=== PATIENT | female | born 1955 | race Caucasian/White ===

== ENCOUNTER 2019-04-07 01:12 | Observation (INO) | payer SELFPAY ==
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
[2019-04-07 02:16] LABS: CHLORIDE,CL 107 mEq/L (98-106); SODIUM,NA 144 mEq/L (136-145)
[2019-04-07] MEDS ORDERED: Sodium Chloride 0.9% 10 ML Syringe FLUSH PRN (04:26)
[2019-04-07] MEDS ORDERED: Ondansetron 4 MG Tab.DIS PO PRN (04:26)
[2019-04-07] MEDS: Acetaminophen 325 MG Tab PO PRN (12:15)
--- NOTE | 2019-04-08 07:39 | PCM.PN ---
- General Info Date of Service: 04/08/19 Functional Status: Reports: Pain Controlled, Tolerating Diet. Denies: Ambulating - Review of Systems General: Reports: Weakness (generalized), Other (Obese) HEENT: Reports: Eye Pain (right eye for 2 weeks that radiates up into her right side of head. ). Denies: Post Nasal Drip, Sinus Congestion Pulmonary: Reports: No Symptoms. Denies: Shortness of Breath Cardiovascular: Reports: No Symptoms. Denies: Chest Pain, Palpitations, Dyspnea on Exertion, Edema, Lightheadedness Gastrointestinal: Reports: No Symptoms. Denies: Abdominal Pain, Diarrhea, Difficulty Swallowing, Nausea, Vomiting Genitourinary: Reports: Incontinence Musculoskeletal: Reports: No Symptoms Skin: Reports: Rash Neurological: Reports: Headache, Weakness (generalized). Denies: Confusion, Dizziness, Numbness, Seizure, Syncope, Tingling, Tremors, Trouble Speaking, Change in Speech Psychiatric: Reports: No Symptoms - Patient Data Vitals - Most Recent: Last Vital Signs Temp 97.2 F 04/08/19 04:00 Pulse 88 04/08/19 04:00 Resp 16 04/08/19 04:00 BP 140/62 04/08/19 04:00 Pulse Ox 95 04/08/19 04:00 Weight - Most Recent: 352 lb 4.8 oz Alberto Results Last 24 Hours: Microbiology 04/07/19 10:00 Occult Blood - Preliminary Stool / Feces Med Orders - Current: Current Medications Acetaminophen (Tylenol) 650 mg PO Q4H PRN PRN Reason: Pain (Mild 1-3)/fever Last Admin: 04/07/19 12:15 Dose: 650 mg Ondansetron HCl (Zofran Odt) 4 mg PO Q4H PRN PRN Reason: nausea, able to take PO Sodium Chloride (Saline Flush) 10 ml FLUSH ASDIRECTED PRN PRN Reason: Keep Vein Open - Exam General: Alert, Oriented, Cooperative, No Acute Distress HEENT: Pupils Equal, Pupils Reactive, Mucous Membr. Moist/[place] Neck: Supple, Trachea Midline, No JVD, No Thyromegaly Lungs: Clear to Auscultation, Normal Respiratory Effort Cardiovascular: Regular Rate, Regular Rhythm GI/Abdominal Exam: Normal Bowel Sounds, Soft, Non-Tender, Other (Obese: unable to identify landmarks. ) Back Exam: Normal Inspection Extremities: Normal Range of Motion, No Pedal Edema, Normal Capillary Refill Peripheral Pulses: 2+: Radial (L), Radial (R), Posterior Tibial (L), Posterior Tibial (R) Skin: Warm, Dry, Rash (Increased warmth multiple abraded area, pressure areas that are erythematous to the left side of left breast. Yeast infection erythema groin and left under breast. ) Psy/Mental Status: Alert, Normal Affect, Normal Mood - Problem List Review Problem List Initiated/Reviewed/Updated: Yes - My Orders Last 24 Hours: My Active Orders 04/08/19 05:00 BMP [BASIC METABOLIC PANEL,BMP] [CHEM] DAILY CBC WITH AUTO DIFF [HEME] DAILY 04/09/19 05:00 BMP [BASIC METABOLIC PANEL,BMP] [CHEM] DAILY CBC WITH AUTO DIFF [HEME] DAILY - Plan Plan:: This patient was admitted yesterday for fall at home and laying on the floor for 12 hours. Patient has not been able to take care of herself and now cargiver is unable to do so. Patient home is dirty, patient was unkempt. Patient is alert and oriented. She reports for the last 2 week having right eye pain that radiates to the right side of her head. She reports that she is unable to get up and feeling generally weak. She reports that she is incontinent of urine at home and now here, also stool. I have ordered labs for this morning and also a head ct due to patient headache complaint and urinary/ bowel incontinence. Will continue admit. Patient should be evaluated by social work msw on Wednesday for future placement.
[2019-04-08 08:25] LABS: CHLORIDE,CL 108 mEq/L (98-106); SODIUM,NA 144 mEq/L (136-145)
--- NOTE | 2019-04-08 14:31 | PCM.SN ---
- Free Text/Narrative Note: I received a phone call from radiology about head ct. Impression: There is probable mass in the right frontal lobe with decreased density cerebral white matter and mass effect. There may an underlying tumor. Recommend an MR. I have also reviewed patient US impression: that shows marked thickening of the endometrial cavity may be related to endometrial hyperplasia, polyp or endometrial neoplasia. Patient also has a UTI, started Rocephin. I have talked to the patient with Jelena BENITEZ about her US, CT, and Urine results. She would like to call her family and discuss options with them and if she wants to be transferred. She said she will talk to them and let us know the decision. I have answered all questions the patient had at this time. Patient at this time wants to hold on transfer and consult until she talks to her family. 04/08/191899 Patient still discussing with family and has not made a decision about transfer or further treatment. At this time, still does not want treatment until discussion complete with family. 04/08/192009 The patient and family have made the decision to be transferred to [facility]. However, patient does not want to be transferred until tomorrow because she would like to stay here one more night with family close by she reports. Patient is alert and oriented. I then called and spoke to neurosurgeon at [facility] who reports tomorrow transfer would be fine. He reports to give her Decadron IV and Keppra. 04/08/192149 I spoke with the patient again about the plan. I again asked if she would like to be transferred now, she reports in the morning. She is alert and oriented. She is drowsy and reports being nauseated. I did explain to the patient that neurosurgeon reported this would more than likely be surgical and she has a long road ahead. She reports that surgery would be okay. We had a long discussion about her code status. Patient continues to report that she wants to be DNR. She does not want CPR or Intubation with vent. She will accept Rocephin , Decadron, Keppra, and Zofran. The patient reports that she is yazidi and when it is her time, its her time to go. The plan will be to transfer the patient tomorrow. If her condition changes, will again revisit the possibility of a transfer sooner.
[2019-04-08] MEDS: cefTRIAXone 1 GM Vial IVPUSH SCH (14:45)
[2019-04-08] MEDS: Acetaminophen 325 MG Tab PO PRN (19:34)
[2019-04-08] MEDS ORDERED: Dexamethasone 4 MG/ML SDV IVPUSH ONE (21:42)
[2019-04-08] MEDS: Ondansetron 4 MG/2 ML SDV IVPUSH PRN (22:39)
[2019-04-08] MEDS: levETIRAcetam 500 MG Tab PO SCH (22:42)
[2019-04-09] MEDS: Dexamethasone 4 MG/ML SDV IVPUSH SCH ×3 (04:28→14:05)
[2019-04-09 08:04] LABS: CHLORIDE,CL 109 mEq/L (98-106); SODIUM,NA 145 mEq/L (136-145)
[2019-04-09] MEDS: levETIRAcetam 500 MG Tab PO SCH (08:05)
[2019-04-09] MEDS ORDERED: Ondansetron 4 MG/2 ML SDV IVPUSH PRN (08:43)
[2019-04-09] MEDS ORDERED: Morphine 4 MG/ML Syringe IVPUSH PRN (08:43)
--- NOTE | 2019-04-09 09:10 | PCM.PN ---
- General Info Date of Service: 04/09/19 Functional Status: Reports: Tolerating Diet. Denies: Ambulating Pain Score: 8 - Review of Systems General: Reports: Weakness (generalized) HEENT: Reports: Eye Pain (Right), Headaches Pulmonary: Reports: No Symptoms Cardiovascular: Reports: No Symptoms Gastrointestinal: Reports: Nausea Genitourinary: Reports: No Symptoms Musculoskeletal: Reports: No Symptoms Skin: Reports: No Symptoms Neurological: Reports: Headache, Difficulty Walking (not able to ambulate or stand. ), Weakness (generalized) Psychiatric: Reports: No Symptoms - Patient Data Vitals - Most Recent: Last Vital Signs Temp 98.5 F 04/09/19 08:00 Pulse 92 04/09/19 08:00 Resp 20 04/09/19 08:00 BP 139/53 L 04/09/19 08:00 Pulse Ox 93 L 04/09/19 08:00 Weight - Most Recent: 352 lb 4.8 oz Lab Results Last 24 Hours: Laboratory Results - last 24 hr 04/08/19 04/09/19 04/09/19 Range/Units 03:00 05:00 05:00 WBC 12.6 H (5.0-10.0) 10^3/uL RBC 5.06 (4.00-5.50) 10^6/uL Hgb 12.6 (12.0-16.0) g/dL Hct 40.9 (37.0-47.0) % MCV 80.8 L (82.0-94.0) fL MCH 24.9 L (27.0-32.0) pg MCHC 30.8 L (33.0-38.0) g/dL RDW Coeff of Aminata 16.9 H (11.0-15.0) % Plt Count 324 (150-400) 10^3/uL Neut % (Auto) 89.2 H (35-85) % Lymph % (Auto) 9.7 L (10-55) % [place] % (Auto) 1.0 (0-16) % Eos % (Auto) 0 (0-5) % Baso % (Auto) 0.1 (0-3) % Neut # (Auto) 11.25 H (1.80-7.00) 10^3/uL Lymph # (Auto) 1.22 (1.00-4.80) 10^3/uL [place] # (Auto) 0.13 (0.00-0.80) 10^3/uL Eos # (Auto) 0.00 (0.00-0.45) 10^3/uL Baso # (Auto) 0.01 10^3/uL Sodium 145 (136-145) mEq/L Potassium 4.6 (3.5-5.0) mEq/L Chloride 109 H (98-106) mEq/L Carbon Dioxide 28 (21-32) mmol/L BUN 22 H (7-18) mg/dL Creatinine 0.6 (0.6-1.0) mg/dL Est Cr Clr Drug Dosing 67.14 mL/min Estimated GFR (MDRD) > 60 (>=60) mL/min Glucose 170 H D (75-99) mg/dL Calcium 9.0 (8.4-10.1) mg/dL Urine Color Yellow (YELLOW) Urine Appearance Cloudy (CLEAR) Urine pH 5.5 (4.5-8.0) Ur Specific [place] 1.025 H (1.003-1.020) Urine Protein 30 H (NEGATIVE) mg/dL Urine Glucose (UA) Negative (NEGATIVE) mg/dL Urine Ketones Trace H (NEGATIVE) mg/dL Urine Occult Blood Large H (NEGATIVE) Urine Nitrite Positive H (NEGATIVE) Urine Bilirubin Negative (NEGATIVE) Urine Urobilinogen 0.2 (0.2-1.0) EU/dL Ur Leukocyte Esterase Moderate H (NEGATIVE) Urine RBC 0-5 (0-5) /HPF Urine WBC 5-10 H (0-5) /HPF Calcium Oxalate Crystal Few H (NOT SEEN) /HPF Amorphous Sediment Moderate H (NOT SEEN) /HPF Urine Bacteria Moderate H (NOT SEEN) /HPF Urinalysis Comment Alberto Results Last 24 Hours: Microbiology 04/08/19 03:00 Urine Culture - Preliminary Urine, Voided Gram Negative Rods Med Orders - Current: Current Medications Acetaminophen (Tylenol) 650 mg PO Q4H PRN PRN Reason: Pain (Mild 1-3)/fever Last Admin: 04/08/19 19:34 Dose: 650 mg Ceftriaxone Sodium (Rocephin) 1 gm IVPUSH Q24H LEOLA Last Admin: 04/08/19 14:45 Dose: 1 gm Dexamethasone (Dexamethasone) 4 mg IVPUSH Q6H LEOLA Last Admin: 04/09/19 04:28 Dose: 4 mg Levetiracetam (Keppra) 500 mg PO BID LEOLA Last Admin: 04/09/19 08:05 Dose: 500 mg Morphine Sulfate (Morphine) 4 mg IVPUSH Q6H PRN PRN Reason: Headache/Pain Ondansetron HCl (Zofran) 4 mg IVPUSH Q6H PRN PRN Reason: Nausea/Vomiting Last Admin: 04/08/19 22:39 Dose: 4 mg Sodium Chloride (Saline Flush) 10 ml FLUSH ASDIRECTED PRN PRN Reason: Keep Vein Open Discontinued Medications Dexamethasone (Dexamethasone) 10 mg IVPUSH ONETIME ONE Stop: 04/08/19 21:43 Last Admin: 04/08/19 22:43 Dose: 10 mg Ondansetron HCl (Zofran Odt) 4 mg PO Q4H PRN PRN Reason: nausea, able to take PO Ondansetron HCl (Zofran) 4 mg IVPUSH Q6H PRN PRN Reason: Nausea/Vomiting - Exam General: Alert, Oriented, Cooperative HEENT: Pupils Equal, Pupils Reactive, EOMI, Mucous Membr. Moist/[place] Neck: Supple Lungs: Clear to Auscultation, Normal Respiratory Effort Cardiovascular: Regular Rate, Regular Rhythm GI/Abdominal Exam: Normal Bowel Sounds, Soft, Non-Tender, No Distention Back Exam: Normal Inspection, Full Range of Motion Extremities: Normal Inspection, Normal Range of Motion, Non-Tender, No Pedal Edema, Normal Capillary Refill Peripheral Pulses: 2+: Radial (L), Radial (R), Posterior Tibial (L), Posterior Tibial (R) Skin: Warm, Dry, Intact, Rash (left breast erythema. ) Neurological: No New Focal Deficit, Sensation Intact, Other (unable to get up from bed. This is unchanged from her admit. ) Psy/Mental Status: Alert, Normal Affect, Normal Mood - Problem List Review Problem List Initiated/Reviewed/Updated: Yes - My Orders Last 24 Hours: My Active Orders 04/08/19 14:00 cefTRIAXone [Rocephin] 1 gm IVPUSH Q24H 04/08/19 21:45 levETIRAcetam [Keppra] 500 mg PO BID 04/08/19 22:04 Ondansetron [Zofran] 4 mg IVPUSH Q6H PRN 04/09/19 04:00 dexAMETHasone [Dexamethasone] 4 mg IVPUSH Q6H 04/09/19 08:43 Morphine 4 mg IVPUSH Q6H PRN - Plan Plan:: 04/08/19 This patient was admitted yesterday for fall at home and laying on the floor for 12 hours. Patient has not been able to take care of herself and now cargiver is unable to do so. Patient home is dirty, patient was unkempt. Patient is alert and oriented. She reports for the last 2 week having right eye pain that radiates to the right side of her head. She reports that she is unable to get up and feeling generally weak. She reports that she is incontinent of urine at home and now here, also stool. I have ordered labs for this morning and also a head ct due to patient headache complaint and urinary/ bowel incontinence. Will continue admit. Patient should be evaluated by health social work professor on Wednesday for future placement. 04/09/19 I have spoken to the patient this morning. She reports she is ready to be transferred today. Patient reports that after discussions with her family, she would like to be transferred now and is wanting to change her code status to a Full Code. The patient reports that she has a headache and right eye pain of 8/ 10 this morning. She has refused pain medications until now. I will prescribe the patient something for pain and nausea. Patient is alert and oriented. Patient reports she is unable to get up form bed, as this has michelle unchanged the last couple of weeks. I called and spoke to neurosurgeon Dr. Askew last night. He agreed to have patient today. I have called today and [facility]. He has accepted the patient. No changes from what we are currently doing for this patient. One call has informed me that they currently do not have a bed open, but will call as soon as one comes available. 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
[2019-04-09] MEDS: Ondansetron 4 MG/2 ML SDV IVPUSH PRN (09:26)
--- NOTE | 2019-04-09 09:58 | PCM.DCSUM1 ---
Discharge Summary - Hospital Course HPI Initial Comments: I have spoken to the patient this morning. She reports she is ready to be transferred today. Patient reports that after discussions with her family, she would like to be transferred now and is wanting to change her code status to a Full Code. The patient reports that she has a headache and right eye pain of 8/ 10 this morning. She has refused pain medications until now. I will prescribe the patient something for pain and nausea. Patient is alert and oriented. Patient reports she is unable to get up form bed, as this has michelle unchanged the last couple of weeks. I called and spoke to neurosurgeon Dr. Askew last night. He agreed to have patient today. I have called today and spoke to Dr. Walter hospitalist [facility]. He has accepted the patient. No changes from what we are currently doing for this patient. One call has informed me that they currently do not have a bed open, but will call as soon as one comes available. 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 Modified [place] Scale: Sev.Disablility Bedridden,Incont.&Require Constant Nrsg.Care/Attention Modified [place] Scale Score: 5 - Discharge Data Discharge Date: 04/09/19 Discharge Disposition: DC/Tfer to Acute Hospital 02 Condition: Serious - Patient Summary/Data Consults: Consultations 04/07/19 04:26 PT Evaluation and Treatment [CONS] Routine - Discharge Plan *PRESCRIPTION DRUG MONITORING PROGRAM REVIEWED*: No *COPY OF PRESCRIPTION DRUG MONITORING REPORT IN PATIENT OLI: No Home Medications: Home Meds . [No Known Home Meds] 04/07/19 [History] Forms: ED Department Discharge Referrals: Redd Xavier MD [Primary Care Provider] - - Discharge Summary/Plan Comment DC Time >30 min.: Yes (Awiating bed availability at [facility]) Discharge Summary/Plan Comment: This patient is being transferred via ALS ambulance to [facility] for neurosurgeon consult and FACS TEACHER consult. The risk of transfer are MVC, , increased cranial edema, change in neuro status, seizures, respiratory arrest, cardiac arrest. The benefits of transfer are higher level of care, neurosurgeon consult and treatment, MRI capability, FACS TEACHER consult, cancer treatment. The benefit of staying in [place] are close to home, some family here in [facility]. The risks of staying in [place] are increased cranial edema , , worsening of condition, no cancer treatment, no surgical treatment. - General Info Date of Service: 04/09/19 Functional Status: Reports: Tolerating Diet - Review of Systems General: Reports: Weakness (general) HEENT: Reports: Eye Pain (right eye pain), Headaches Pulmonary: Reports: No Symptoms Cardiovascular: Reports: No Symptoms Gastrointestinal: Reports: Nausea. Denies: Abdominal Pain, Vomiting Genitourinary: Reports: Incontinence Musculoskeletal: Reports: No Symptoms Skin: Reports: No Symptoms Neurological: Reports: Headache, Difficulty Walking (unable to walk or get out of bed), Weakness (generalized) Psychiatric: Reports: No Symptoms - Patient Data Vitals - Most Recent: Last Vital Signs Temp 98.5 F 04/09/19 08:00 Pulse 92 04/09/19 08:00 Resp 20 04/09/19 08:00 BP 139/53 L 04/09/19 08:00 Pulse Ox 93 L 04/09/19 08:00 Weight - Most Recent: 352 lb 4.8 oz Lab Results - Last 24 hrs: Laboratory Results - last 24 hr 04/09/19 04/09/19 Range/Units 05:00 05:00 WBC 12.6 H (5.0-10.0) 10^3/uL RBC 5.06 (4.00-5.50) 10^6/uL Hgb 12.6 (12.0-16.0) g/dL Hct 40.9 (37.0-47.0) % MCV 80.8 L (82.0-94.0) fL MCH 24.9 L (27.0-32.0) pg MCHC 30.8 L (33.0-38.0) g/dL RDW Coeff of Aminata 16.9 H (11.0-15.0) % Plt Count 324 (150-400) 10^3/uL Neut % (Auto) 89.2 H (35-85) % Lymph % (Auto) 9.7 L (10-55) % Banks % (Auto) 1.0 (0-16) % Eos % (Auto) 0 (0-5) % Baso % (Auto) 0.1 (0-3) % Neut # (Auto) 11.25 H (1.80-7.00) 10^3/uL Lymph # (Auto) 1.22 (1.00-4.80) 10^3/uL Banks # (Auto) 0.13 (0.00-0.80) 10^3/uL Eos # (Auto) 0.00 (0.00-0.45) 10^3/uL Baso # (Auto) 0.01 10^3/uL Sodium 145 (136-145) mEq/L Potassium 4.6 (3.5-5.0) mEq/L Chloride 109 H (98-106) mEq/L Carbon Dioxide 28 (21-32) mmol/L BUN 22 H (7-18) mg/dL Creatinine 0.6 (0.6-1.0) mg/dL Est Cr Clr Drug Dosing 67.14 mL/min Estimated GFR (MDRD) > 60 (>=60) mL/min Glucose 170 H D (75-99) mg/dL Calcium 9.0 (8.4-10.1) mg/dL CALVIN Results - Last 24 hrs: Microbiology 04/08/19 03:00 Urine Culture - Preliminary Urine, Voided Gram Negative Rods Med Orders - Current: Current Medications Acetaminophen (Tylenol) 650 mg PO Q4H PRN PRN Reason: Pain (Mild 1-3)/fever Last Admin: 04/08/19 19:34 Dose: 650 mg Ceftriaxone Sodium (Rocephin) 1 gm IVPUSH Q24H [facility] Last Admin: 04/08/19 14:45 Dose: 1 gm Dexamethasone (Dexamethasone) 4 mg IVPUSH Q6H [facility] Last Admin: 04/09/19 09:24 Dose: 4 mg Levetiracetam (Keppra) 500 mg PO BID [facility] Last Admin: 04/09/19 08:05 Dose: 500 mg Morphine Sulfate (Morphine) 4 mg IVPUSH Q6H PRN PRN Reason: Headache/Pain Last Admin: 04/09/19 09:28 Dose: 4 mg Ondansetron HCl (Zofran) 4 mg IVPUSH Q6H PRN PRN Reason: Nausea/Vomiting Last Admin: 04/09/19 09:26 Dose: 4 mg Sodium Chloride (Saline Flush) 10 ml FLUSH ASDIRECTED PRN PRN Reason: Keep Vein Open Discontinued Medications Dexamethasone (Dexamethasone) 10 mg IVPUSH ONETIME ONE Stop: 04/08/19 21:43 Last Admin: 04/08/19 22:43 Dose: 10 mg Ondansetron HCl (Zofran Odt) 4 mg PO Q4H PRN PRN Reason: nausea, able to take PO Ondansetron HCl (Zofran) 4 mg IVPUSH Q6H PRN PRN Reason: Nausea/Vomiting - Exam General: Reports: Alert, Oriented, Cooperative HEENT: Reports: Pupils Equal, Pupils Reactive, EOMI, Mucous Membr. Moist/[place] Neck: Reports: Supple Lungs: Reports: Clear to Auscultation, Normal Respiratory Effort Cardiovascular: Reports: Regular Rate, Regular Rhythm GI/Abdominal Exam: Normal Bowel Sounds, Soft, Non-Tender, Pelvis Stable Back Exam: Reports: Normal Inspection, Full Range of Motion Extremities: Normal Inspection, Non-Tender, No Pedal Edema, Normal Capillary Refill Skin: Reports: Warm, Dry, Intact, Rash (breast under) Neurological: Reports: Normal Speech, Sensation Intact, Other (unable to get up from bed, unchanged from admit. ) Psy/Mental Status: Reports: Alert, Normal Affect, Normal Mood
[2019-04-09] MEDS: cefTRIAXone 1 GM Vial IVPUSH SCH (14:05)
== END 2019-04-09 14:40 ==
LOC: CC.ED 01:12 → UNDOADMOB 02:44 → CC.MS 02:44 → OBSVTOIN 02:44 → INTOOBSV 02:44 → CC.ED 02:44 → CC.MS 02:46
PROVIDERS: ADMIT Physician Assistant Medical; ATTEND Family Medicine
DX: R51 Headache (principal); R53.1 Weakness; H57.11 Ocular pain, right eye; Z87.42 Personal history of other diseases of the female genital tract; Z88.0 Allergy status to penicillin; Z98.890 Other specified postprocedural states
CPT/HCPCS: 36415; 70450; 76830; 80048; 80053; 81001; 81003; 82270; 82550; 83615; 84484; 85025; 86140; 87086; 87088; 87186; 97110-GP; 97161-GP; 99285; A9270-GY; J0696; J1100; J2270; J2405

== ENCOUNTER 2019-06-08 07:00 | Emergency (ER) | payer MEDICAID ==
[2019-06-08 08:08] LABS: CHLORIDE,CL 102 mEq/L (98-106); SODIUM,NA 138 mEq/L (136-145)
--- NOTE | 2019-06-08 09:16 | EDM.PDOC ---
ED HPI GENERAL MEDICAL PROBLEM - General Chief Complaint: Respiratory Problem Stated Complaint: respiratory distress Time Seen by Provider: 06/08/19 07:30 Source of Information: Reports: Patient, Family History Limitations: Reports: No Limitations - History of Present Illness INITIAL COMMENTS - FREE TEXT/NARRATIVE: Patient presents to ER with complaints of increased shortness of breath. Was given nebulizer treatment enroute per EMS and feels improvement now. Patient was just discharged home from [facility] on Wednesday due to stage IV metastatic uterine cancer. Patient was transferred from here back in March due to vaginal bleeding and a brain mass. Over the last 2 months, had surgery to remove the tumor to her brain and has had improvement of the headaches. Was found to have metastatic lesions to the liver, kidneys, lung and lymph nodes per family. She was discharged home with life expectancy of 2-4 weeks. Is taking oxycodone for pain. Has not been ambulatory since prior to March. Was discharged home on Wednesday with hospital bed and air care "but no pump to operate it". Family has been caring for her and had hoped to keep her home. Discussion with family and patient is unclear as to their plan. They "weren't sure what to do when she got short of breath this am". Have been trying to arrange for a bariatric bed and even yesterday had discussed hospice. Daughter felt she should have work up for this SOB to "see if anything else causing her symptoms" States thought she was to be sent home with an inhaler but "that was crossed off her discharge list". Has been concerns on coverage for home health versus hospice versus a bariatric bed. Has an appointment with oncology on Jun 22 but admits that she does not want chemo or radiation and family relates they had not felt the cancer would be responsive to treatment due to advanced disease. Family indecisive when discussing all of this. Has 2 daughters who felt she should be admitted to the [facility] but patient does not desire this. Onset: Gradual Duration: Week(s):, Chronic Location: Reports: Chest Associated Symptoms: Reports: Cough, Shortness of Breath, Weakness. 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 Denies: Fever, Chills HEENT: Denies: Ear Discharge, Ear Pain, Throat Pain Respiratory: Reports: Shortness of Breath, Wheezing, Cough Cardiovascular: Denies: Chest Pain Endocrine: Reports: Fatigue GI/Abdominal: Reports: Abdominal Pain, Melena, Nausea. Denies: Vomiting : Reports: No Symptoms Neurological: Reports: Weakness ED EXAM, GENERAL - Physical Exam Exam: See Below Exam Limited By: No Limitations General Appearance: Alert, WD/WN, No Apparent Distress Ears: Normal External Exam, Normal TMs Nose: Normal Inspection, Normal Mucosa, No Blood Throat/Mouth: Normal Inspection, Other (mucous membranes dry) Head: Normocephalic Neck: Normal Inspection, Supple, Non-Tender Respiratory/Chest: Decreased Breath Sounds, Wheezing Cardiovascular: Regular Rate, Rhythm GI/Abdominal: Normal Bowel Sounds, Soft, Non-Tender Neurological: Alert, Oriented Skin Exam: Warm Course - Vital Signs Last Recorded V/S: Last Vital Signs Temp 98.6 F 06/08/19 07:05 Pulse 118 H 06/08/19 07:05 Resp 16 06/08/19 07:05 BP 135/79 06/08/19 07:05 Pulse Ox 96 06/08/19 07:05 - Orders/Labs/Meds Labs: Laboratory Tests 06/08/19 06/08/19 Range/Units 07:53 07:53 WBC 15.8 H (5.0-10.0) 10^3/uL RBC 4.40 (4.00-5.50) 10^6/uL Hgb 10.6 L (12.0-16.0) g/dL Hct 35.2 L (37.0-47.0) % MCV 80.0 L (82.0-94.0) fL MCH 24.1 L (27.0-32.0) pg MCHC 30.1 L (33.0-38.0) g/dL RDW Coeff of Aminata 19.7 H (11.0-15.0) % Plt Count 358 (150-400) 10^3/uL Add Manual Diff Yes Neutrophils % (Manual) 73 (35-85) % Band Neutrophils % 5 (0-5) % Lymphocytes % (Manual) 11 L (21-55) % Monocytes % (Manual) 9 (2-12) % Basophils % (Manual) 1 (0-3) % Metamyelocytes % 1 % Absolute Neutrophils 12.32 H (1.80-7.00) 10^3/uL Lymphocytes # (Manual) 1.74 (1.00-4.80) 10^3/uL Monocytes # (Manual) 1.42 H (0.00-0.80) 10^3/uL Basophils # (Manual) 0.16 10^3/uL Platelet Estimate Adequate (ADEQUATE) Microcytosis 1+ slight H (NOT SEEN) Sodium 138 (136-145) mEq/L Potassium 4.3 (3.5-5.0) mEq/L Chloride 102 (98-106) mEq/L Carbon Dioxide 30 (21-32) mmol/L BUN 15 (7-18) mg/dL Creatinine 0.6 (0.6-1.0) mg/dL Est Cr Clr Drug Dosing TNP Estimated GFR (MDRD) > 60 (>=60) mL/min Glucose 133 H (75-99) mg/dL Calcium 8.5 (8.4-10.1) mg/dL C-Reactive Protein 14.6 H (0.2-0.8) mg/dL - Re-Assessments/Exams Free Text/Narrative Re-Assessment/Exam: 06/08/19 Much discussion held with family and patient. Unable to decide plan, did contact Yenni Stevenson, nurse from hospice and home health as well as had Shonna Rivas RN, hospital social worker in to visit with family to discuss options. Family did decide would like to allow her to be home, arranged for bariatric bed , admit to Hospice this afternoon. Ambulance transfer arranged for return home. Departure - Departure Time of Disposition: 10:12 Disposition: Home, W Home Health Agency 06 Condition: Poor Clinical Impression: Metastasis from cancer of uterus - Discharge Information *PRESCRIPTION DRUG MONITORING PROGRAM REVIEWED*: No *COPY OF PRESCRIPTION DRUG MONITORING REPORT IN PATIENT OLI: No Referrals: PCP,Unknown [Primary Care Provider] - Forms: ED Department Discharge Additional Instructions: 1. Discharge home with hospice
== END 2019-06-08 10:30 | disposition home health service (06) ==
LOC: CC.ED 07:00
DX: C55 Malignant neoplasm of uterus, part unspecified (principal); C78.7 Secondary malignant neoplasm of liver and intrahepatic bile duct; C77.9 Secondary and unspecified malignant neoplasm of lymph node, unspecified; C79.31 Secondary malignant neoplasm of brain; C79.00 Secondary malignant neoplasm of unspecified kidney and renal pelvis; Z98.890 Other specified postprocedural states; Z88.0 Allergy status to penicillin
CPT/HCPCS: 36415; 71045; 80048; 85025; 86140; 99285-25